=== PATIENT | female | born 1960 | race Caucasian/White ===

== ENCOUNTER 2017-08-30 10:42 | Inpatient (IN) | payer MEDICARE, MEDICAID ==
--- NOTE | 2017-08-23 16:45 | HP ---
HISTORY AND PHYSICAL: DATE OF ADMISSION/SURGERY: 08/30/17 DATE OF OFFICE VISIT: 08/22/17 SURGEON: Lisha Leblanc MD * (DICTATED BY HERBERT JOHNSON) PROCEDURE: Left total knee arthroplasty. CHIEF COMPLAINT: Left knee pain. HISTORY OF PRESENT ILLNESS: Ms. Hernandez is a 56-year-old female with severe left knee pain secondary to end-stage osteoarthritis. She has failed conservative management and has elected to proceed with a left total knee arthroplasty, which is scheduled for 08/30/[address] Leblanc. PAST MEDICAL HISTORY: Stage 3 kidney disease, exercise-induced asthma, diabetes , hypertension, sleep apnea, migraines, depression, hyperlipidemia, insomnia, GERD, and vitamin D deficiency. PAST SURGICAL HISTORY: Left knee arthroscopy, wisdom teeth extraction, and tonsillectomy. CURRENT MEDICATIONS: 1. Diclofenac sodium 1.5%. 2. Tramadol 50 mg. 3. Tums. 4. Neurontin 100 mg twice daily. 5. Aspirin 81 mg daily. 6. Lansoprazole 30 mg. 7. Colace 100 mg twice daily as needed. 8. Sumatriptan succinate 100 mg 1 tab twice a day. 9. Xyzal 5 mg every day. 10. Hydroxyzine 25 mg 1 tablet 3 times a day. 11. Simvastatin 40 mg q.h.s. 12. Oxybutynin 5 mg every day. 13. Ibuprofen as needed. 14. Nasonex as needed. 15. Restoril. 16. Citalopram 10 mg daily. 17. Gabapentin 300 mg 3 times a day. 18. Meloxicam 7.5 mg daily. 19. Lisinopril 20 mg daily. 20. Lexapro. 21. Rexulti. 22. Symbicort. 23. ProAir inhaler. ALLERGIES: To , DUST MITES, MOLD, CAT DANDER, DOG DANDER, and MILK- RELATED COMPOUNDS. FAMILY HISTORY: Lupus, kidney disease, hypertension, and psychiatric disorders. SOCIAL HISTORY: She is a 56-year-old female. She lives alone. She does not smoke, use drugs, or alcohol. REVIEW OF SYSTEMS: A complete 14-point review of systems was reviewed with the patient, it was positive for asthma, stage 3 kidney disease, and diabetes. She denies history of DVT, PE, hepatitis C, or HIV. PHYSICAL EXAMINATION GENERAL: She is well developed, well nourished, in no acute distress. VITAL SIGNS: She stands 5 feet tall, weighs 190 pounds. Her blood pressure is 120/86, her heart rate is 70. HEENT: Normocephalic, atraumatic. NECK: Supple. No palpable lymph nodes. PULMONARY: Lungs are clear to auscultation bilaterally. CARDIO: Regular rate and rhythm. Strong S1, S2. ABDOMEN: Soft, nontender, and nondistended. MUSCULOSKELETAL: Left lower extremity, the skin is intact. There are no open wounds or abrasions. She has some tenderness over the medial and lateral joint line. No varus or valgus instability. 10 to 125 degrees of flexion. 2+ dorsalis pedis pulses. Her lower extremity muscle group strengths are intact at 5/5 and she has intact sensation. NEUROLOGICAL: She is alert and oriented x3. Cranial nerves II through XII are intact. ASSESSMENT AND PLAN: Ms. Hernandez is a 56-year-old female with end-stage osteoarthritis of left knee. She has elected to proceed with a left total knee arthroplasty, which is scheduled for 08/30/[address] Leblanc discussed the risks and benefits of the surgery at today's visit and all of her questions were answered. She will follow with Dr. Leblanc 2 weeks after the surgery. HERBERT JOHNSON [id number]/CPS #: [id number] MTDD
[~2017-08-30 10:42] MED LIST: Buffered Lidocaine 0.9% SYRIN* 5 ML/SYR SYRINGE INTRADERM ONE; Famotidine IV* 10 MG/ML 2 ML (20 mg) IV ONE
[2017-08-30] MEDS ORDERED: Famotidine IV* 10 MG/ML 2 ML (20 mg) ONE (11:10)
[2017-08-30] MEDS ORDERED: ceFAZolin 2 GM PREMIX (*) 2 GM/50 ML BAG IVPB ONE (11:10)
[2017-08-30] MEDS ORDERED: Midazolam* 1 MG/ML 10 ML VIAL (10 MG) ONE (12:10)
[2017-08-30] MEDS ORDERED: KETAMINE HCL* 50 MG/ML 10 ML VIAL ONE (12:10)
[2017-08-30] MEDS ORDERED: Morphine PF AMP (0.5MG/ML)* 5 MG/10 ML AMP ONE (12:10)
[2017-08-30] MEDS ORDERED: fentaNYL* 50 MCG/ML 2 ML VIAL (100 MCG VIAL) ONE (12:10)
[2017-08-30] MEDS ORDERED: Naloxone* 0.4 MG/ML 1 ML VIAL IV PRN ×2 (15:48→15:53)
[2017-08-30] MEDS ORDERED: diPHENhydraMINE IV* 50 MG/ML 1 ml VIAL (BENADRYL) IV PRN (15:48)
[2017-08-30] MEDS ORDERED: DiMENhydriNATE IV* 50 MG/ML VIAL IV PUSH PRN (15:48)
[2017-08-30] MEDS ORDERED: PROCHLORPERAZINE INJ 5 MG/ML 2 ML VIAL IV PRN (15:48)
[2017-08-30] MEDS ORDERED: Ondansetron INJ* 2 MG/ML VIAL IV PRN (15:48)
[2017-08-30] MEDS ORDERED: Scopolamine PATCH Remove* 1 NOTE MISC PATCH OFF PRN (15:48)
[2017-08-30] MEDS ORDERED: Nalbuphine* 20 MG/ML 1 ML VIAL IV PRN (15:48)
[2017-08-30] MEDS ORDERED: Naloxone* 2 MG in NS 0.9% 250 ML* 250 ML IV PRN (15:48)
[2017-08-30] MEDS ORDERED: Phenylephrine INJ* 10 MG/ML 1 ML VIAL (10 MG) ONE (17:29)
[2017-08-30] MEDS ORDERED: Scopolamine 1.5 mg* PATCH ONE (17:29)
[2017-08-30] MEDS ORDERED: Bupivacaine 0.25% SDV* 30 ML ONE (17:29)
[2017-08-30] MEDS ORDERED: Lidocaine 2% PF * 5 ML VIAL ONE (17:29)
[2017-08-30] MEDS ORDERED: Ondansetron INJ* 2 MG/ML VIAL ONE (17:29)
[2017-08-30] MEDS ORDERED: Dexamethasone IV* 4 MG/ML 1 ML (4 MG) ONE (17:29)
[2017-08-30] MEDS ORDERED: Propofol* 10 MG/ML 20 ML BTL IV PUSH ONE (17:29)
[2017-08-30] MEDS ORDERED: Bupivacaine 0.5% SDV PF* 10-30ML VIAL ONE (17:29)
[2017-08-30] MEDS ORDERED: Polyethylene Glycol 3350* 17 GM PACKET PO PRN (17:36)
[2017-08-30] MEDS ORDERED: Magnesium Hydroxide LIQ* 30 ML UDC PO PRN (17:36)
[2017-08-30] MEDS ORDERED: Acetaminophen TAB* 325 MG PO PRN (17:36)
[2017-08-30] MEDS ORDERED: Bisacodyl SUPP* 10 MG SUPP PR PRN (17:36)
[2017-08-30] MEDS ORDERED: Atorvastatin* 20 MG TAB PO SCH (18:00)
--- NOTE | 2017-08-30 18:26 | RAD ---
INDICATION: Left knee arthroplasty COMPARISON: July 25, 2017 TECHNIQUE: Portable AP and crosstable lateral views were obtained. FINDINGS: There is left knee arthroplasty. The prosthetic components appear well seated. There is a surgical drain in place. There is a cooling jacket. IMPRESSION: POSTOPERATIVE LEFT TOTAL KNEE
[2017-08-30] MEDS ORDERED: Dextrose 50% Syringe 50 ML* 25 GM/50 ML SYRINGE IV PUSH PRN (20:03)
[2017-08-30] MEDS ORDERED: NF: Azelastine 0.15% NASAL(NF) 30 ML BTL BOTH NARES SCH (21:00)
[2017-08-30] MEDS ORDERED: Warfarin TAB(*) 6 MG PO ONE (21:30)
[2017-08-30] MEDS: Insulin LISPRO* 1 UNITS UNIT SUBCUT SCH (21:41)
[2017-08-30] MEDS: Mometasone/Formoter 200/5 MDI INH SCH (21:44)
[2017-08-30] MEDS: traZODone TAB* 50 MG TAB PO SCH (22:01)
[2017-08-30] MEDS: Docusate CAP* 100 MG PO SCH (22:01)
[2017-08-30] MEDS: Atorvastatin* 20 MG TAB PO SCH (22:01)
[2017-08-30] MEDS: CMCS: Brexpiprazole (NF) 0.5 MG TAB PO SCH (22:02)
[2017-08-30] MEDS: ceFAZolin 1 GM VIAL(*) 1 GM in NS 0.9% 50 ML* 50 ML IVPB SCH (22:04)
[2017-08-30] MEDS: Magnesium Hydroxide LIQ* 30 ML UDC PO SCH (22:07)
[2017-08-30] MEDS: Nalbuphine* 20 MG/ML 1 ML VIAL IV PRN (22:09)
[2017-08-30] MEDS: AZELASTINE 0.1% BOTH NARES SCH (22:49)
[2017-08-31] MEDS: oxyCODONE/Acetamin 5/325 MG* TAB PO PRN ×4 (02:01→20:54)
[2017-08-31] MEDS: Nalbuphine* 20 MG/ML 1 ML VIAL IV PRN (04:47)
--- NOTE | 2017-08-31 05:52 | CONS ---
CC: Dr. Leblanc; Dr. Ortega * CONSULTATION REPORT: DATE OF CONSULT: 08/30/17 REQUESTING PHYSICIAN: The patient's consultation was requested by Dr. Leblanc from Orthopedic Surgery in regards to the patient's medical management of postoperative state of the patient's diabetes, hypertension, and sleep apnea. CHIEF COMPLAINT: "I cannot feel my legs". HISTORY OF PRESENT ILLNESS: Reddy Hernandez is a 56-year-old female with history of obesity, diabetes that is diet controlled, obstructive sleep apnea, hypertension, and depression who is status post elective left knee replacement by Dr. Leblanc. The patient had epidural anesthesia and currently although she is able to move her legs, she states that she still cannot feel them. She is seen for medical consultation for postoperative management of her chronic medical conditions. PAST MEDICAL HISTORY: 1. History of exercise-induced asthma. 2. Diabetes type 2, diet controlled. The patient had been off metformin for 2 months. 3. Obstructive sleep apnea, on CPAP and 12 cm of water. 4. History of migraines. 5. History of major depression. 6. Hyperlipidemia. 7. Insomnia. 8. Gastroesophageal reflux disease. 9. History of vitamin D deficiency. 10. Osteoarthritis. MEDICATIONS: Include: 1. Diclofenac sodium 1.5%. 2. Tramadol on a p.r.n. basis. 3. Tums on a p.r.n. basis. 4. Neurontin 300 mg at bedtime. 5. Atarax 25 mg 3 times a day. 6. Trazodone 50 mg at bedtime. 7. Restoril 15 mg at bedtime. 8. Imitrex on a p.r.n. basis, 100 mg for migraines. 9. Zocor 40 mg daily. 10. Protonix 40 mg daily. 11. Oxybutynin 5 mg daily. 12. Neurontin in addition to 300 mg at night the patient takes 200 mg b.i.d. 13. Mobic 15 mg daily. 14. Lisinopril 20 mg daily. 15. Levocetirizine 5 mg daily. 16. Flonase nasal spray one spray both nostrils b.i.d. 17. Lexapro 30 mg daily. 18. Colace 100 mg at bedtime. 19. Calcium one tablet daily. 20. Symbicort 160/4.5 two puffs b.i.d. 21. Rexulti 1 mg by 2 p.m. 22. Azelastine one spray both nostrils b.i.d. 23. Aspirin 81 mg daily. 24. Artificial tears one drop both eyes q.a.m. 25. Albuterol inhaler on a p.r.n. basis. ALLERGIES: Include LACTOSE and MEPENZOLATE. FAMILY HISTORY: Positive for lupus and chronic kidney disease as well as psychiatric disorders. SOCIAL HISTORY: She denies any tobacco, alcohol or drug use. She lives alone. She has a daughter living nearby and boyfriend. She noted her boyfriend as her surrogate. REVIEW OF SYSTEMS: Please see history of present illness. All the remaining 12 systems were reviewed with the patient and were otherwise negative. PHYSICAL EXAM: Blood pressure of 113/69, heart rate of 68 and regular, respiratory rate 17, oxygen saturation 97% on 1 L of oxygen nasal cannula, and temperature of 97.3. General: The patient is a very pleasant 56-year-old female who is in no acute distress. Alert, awake, and oriented x3. HEENT: Head: Atraumatic, normocephalic. Eyes: Pupils are equal, round, and reactive to light and accommodation. Oropharynx clear. Mucosa moist. Neck: Supple. No JVD, no bruits bilaterally. Cardiovascular: Regular rate and rhythm. No murmur. Respiratory: Clear to auscultation bilaterally. Abdomen: Soft and nontender. Bowel sounds present in all 4 quadrants. Extremities: There is no edema. Pulses are +2 bilaterally. There is no clubbing or cyanosis. The patient's left knee is in cryo unit as postoperative dressings were not removed. On evaluation of the skin, no ecchymotic areas or rashes noted. Once again, the postoperative incision was not evaluated. Neuro Evaluation: Grossly intact apart from loss of sensation from the waist down from the epidural anesthesia that is slowly wearing off. The patient is able to move bilateral lower extremities, although she is not able to fully follow commands due to her sensory deficit. Speech is clear. Cranial nerves II through XII grossly intact. Motor strength is 5/5 bilaterally in all of the extremities. ASSESSMENT AND PLAN: 1. In regards to the patient's left knee replacement status, that is per Dr. Leblanc's service. The patient was already placed on Coumadin and Lovenox. The patient would like to go to rehab after her surgery. 2. In regards to the patient's diabetes type 2, that is diet controlled. We will continue a diabetic diet as well as insulin sliding scale. 3. For her obstructive sleep apnea, the patient has her own CPAP that is going to be continued. 4. For her hypertension, the patient is being continued on lisinopril as at home. 5. For her problems with depression, her outpatient medications are going to be continued. 6. For gastroesophageal reflux disease, Protonix is going to be substituted with omeprazole inpatient. 7. For DVT prophylaxis, the patient is on Lovenox and Coumadin as per primary service. Thank you very much for allowing me to see your patient in consultation. We will see the patient tomorrow. [id number]/[facility] #: [id number] OLLIE
[2017-08-31] MEDS: ceFAZolin 1 GM VIAL(*) 1 GM in NS 0.9% 50 ML* 50 ML IVPB SCH ×2 (05:59→15:09)
[2017-08-31] MEDS: Omeprazole CAP* 20 MG PO SCH (06:01)
[2017-08-31 06:49] LABS: Hematocrit 30 % (35-47); Hemoglobin 9.8 g/dl (12.0-16.0); Mean Platelet Volume 8 um3 (7.4-10.4); Platelet Count 246 10^3/ul (150-450)
[2017-08-31 06:54] LABS: INR 1.1 (0.77-1.02)
[2017-08-31 07:03] LABS: EGFR Non-African American 58.9 (>60)
[2017-08-31] MEDS ORDERED: Ondansetron TAB* 4 MG PO PRN (07:10)
[2017-08-31] MEDS ORDERED: Ondansetron INJ* 2 MG/ML VIAL IV PRN (07:10)
[2017-08-31] MEDS ORDERED: diPHENhydraMINE IV* 50 MG/ML 1 ml VIAL (BENADRYL) IV PRN (07:10)
[2017-08-31] MEDS: Ketorolac INJ* 30 MG/ML 1 ML VIAL IV PRN (07:33)
[2017-08-31] MEDS: Cyclobenzaprine TAB* 10 MG PO PRN ×3 (07:35→23:30)
[2017-08-31] MEDS: CMCS: Escitalopram (NF) 10 MG TAB PO SCH (08:24)
[2017-08-31] MEDS: hydrOXYzine HCL TAB* 25 MG PO SCH ×3 (08:24→20:55)
[2017-08-31] MEDS: Cetirizine* 10 MG TAB PO SCH (08:24)
[2017-08-31] MEDS: Docusate CAP* 100 MG PO SCH ×2 (08:24→20:55)
[2017-08-31] MEDS: AZELASTINE 0.1% BOTH NARES SCH ×2 (08:24→20:51)
[2017-08-31] MEDS: oxyCODONE TAB* 5 MG TAB PO PRN ×3 (08:24→23:29)
[2017-08-31] MEDS: Artificial Tears* 15 ML BTL BOTH EYES SCH (08:25)
[2017-08-31] MEDS: Mometasone/Formoter 200/5 MDI INH SCH ×2 (08:25→20:52)
[2017-08-31] MEDS: Magnesium Hydroxide LIQ* 30 ML UDC PO SCH ×2 (08:30→20:54)
[2017-08-31] MEDS: Insulin LISPRO* 1 UNITS UNIT SUBCUT SCH ×4 (08:43→20:55)
[2017-08-31] MEDS ORDERED: OXYBUTYNIN 5 MG PO SCH (09:00)
[2017-08-31] MEDS ORDERED: Lisinopril TAB* 10 MG PO SCH (09:00)
[2017-08-31] MEDS: Morphine INJ* 2 MG/ML 1 ML SYRINGE (TWO MG - NEW SYRINGE VERSION) IV PRN ×3 (09:45→17:20)
--- NOTE | 2017-08-31 11:29 | PN ---
Progress Note - Progress Note Date of Service: 08/31/17 Note: Anesthesia durmorph followup, pt doing well pain strong, -NV, - DUNNE, neuro ok, alert, VSS. s/p TKR continue oral meds.
--- NOTE | 2017-08-31 12:02 | PN ---
Subjective Date of Service: 08/31/17 Interval History: Pt feels better after she got morphine for post op pain this AM. Hypotensive, but asymptomatic Objective Active Medications: Acetaminophen (Tylenol Tab*) 650 mg PO Q4H PRN PRN Reason: PAIN OR TEMPERATURE Albuterol (Proair Respiclick) 2 puff INH BID [facility] Atorvastatin Calcium (Lipitor*) 20 mg PO BEDTIME [facility] Last Admin: 08/30/17 22:01 Dose: 20 mg Bisacodyl (Dulcolax Supp*) 10 mg NE DAILY PRN PRN Reason: constipation Brexpiprazole (Rexulti 0.5 Mg Tab (Nf)) 1 mg PO QPM [facility] Last Admin: 08/30/17 22:02 Dose: 1 mg Cetirizine HCl (Zyrtec*) 10 mg PO QAM [facility] Last Admin: 08/31/17 08:24 Dose: 10 mg Cyclobenzaprine HCl (Flexeril Tab*) 10 mg PO TID PRN PRN Reason: SPASMS Last Admin: 08/31/17 07:35 Dose: 10 mg Dextrose (D50w Syringe 50 Ml*) 12.5 gm IV PUSH .FOR FS < 60 - SS PRN PRN Reason: FS < 60 Diphenhydramine HCl (Benadryl Iv*) 12.5 mg IV Q6H PRN PRN Reason: PRURITIS Docusate Sodium (Colace Cap*) 100 mg PO BID [facility] Last Admin: 08/31/17 08:24 Dose: 100 mg Enoxaparin Sodium (Lovenox(*)) 30 mg SUBCUT Q24H [facility] Escitalopram Oxalate (Lexapro (Nf)) 30 mg PO QAM [facility] Last Admin: 08/31/17 08:24 Dose: 30 mg Gabapentin (Neurontin Cap(*)) 300 mg PO BEDTIME [facility] Hydroxyzine HCl (Atarax Tab*) 25 mg PO TID [facility] Last Admin: 08/31/17 08:24 Dose: 25 mg Cefazolin Sodium 1 gm/ Sodium (Chloride) 50 mls @ 200 mls/hr IVPB Q8H [facility] Stop: 08/31/17 14:14 Last Admin: 08/31/17 05:59 Dose: 200 mls/hr Lactated Ringer's (Lactated Ringers 1000 Ml Bag*) 1,000 mls @ 100 mls/hr IV PER RATE [facility] Last Admin: 08/30/17 20:52 Dose: 100 mls/hr Insulin Human Lispro (Humalog*) 0 units SUBCUT ACHS [facility] PRN Reason: Protocol Last Admin: 08/31/17 08:43 Dose: 2 units Ketorolac Tromethamine (Toradol Inj*) 30 mg IV Q6H PRN PRN Reason: PAIN Last Admin: 08/31/17 07:33 Dose: 30 mg Magnesium Hydroxide (Milk Of Magnesia Liq*) 30 ml PO BID [facility] Last Admin: 08/31/17 08:30 Dose: 30 ml Magnesium Hydroxide (Milk Of Magnesia Liq*) 30 ml PO Q6H PRN PRN Reason: constipation Mometasone Furoate/Formoterol Fumar (Dulera 200/5 Mdi*) 2 puff INH BID [facility] PRN Reason: Protocol Last Admin: 08/31/17 08:25 Dose: 2 puff Morphine Sulfate (Morphine Inj (Syringe)*) 2 mg IV Q2H PRN PRN Reason: PAIN Last Admin: 08/31/17 09:45 Dose: 2 mg Non-Formulary Medication (Oxybutinin Chloride) 5 mg PO QAM [facility] Pto:Nf Med ( Azelastine Nasal Soln 0.1%) 1 dose BOTH NARES BID [facility] Last Admin: 08/31/17 08:24 Dose: 1 dose Omeprazole (Prilosec Cap*) 20 mg PO DAILY@0600 [facility] Last Admin: 08/31/17 06:01 Dose: 20 mg Ondansetron HCl (Zofran Inj*) 4 mg IV Q6H PRN PRN Reason: nausea Ondansetron HCl (Zofran Tab*) 4 mg PO Q6H PRN PRN Reason: NAUSEA Oxycodone HCl (Roxycodone Tab*) 10 mg PO Q4H PRN PRN Reason: SEVERE PAIN Last Admin: 08/31/17 08:24 Dose: 10 mg Oxycodone/Acetaminophen (Percocet 5/325 Tab*) 2 tab PO Q4H PRN PRN Reason: Moderate Pain Last Admin: 08/31/17 06:01 Dose: 2 tab Oxycodone/Acetaminophen (Percocet 5/325 Tab*) 2 tab PO Q4H PRN PRN Reason: PAIN Oxycodone/Acetaminophen (Percocet 5/325 Tab*) 1 tab PO Q4H PRN PRN Reason: PAIN Pharmacy Profile Note (Scopolamine Patch Remove*) 1 note PATCH OFF .AFTER 72 HOURS PRN PRN Reason: nausea Stop: 09/02/17 15:50 Pharmacy Profile Note (Coumadin Daily Reminder*) 1 note FOLLOW UP 1700 [facility] Polyethylene Glycol/Electrolytes (Miralax*) 17 gm PO DAILY PRN PRN Reason: Constipation Polyvinyl Alcohol (Polyvinyl Alcohol 1.4% Opth*) 1 drop BOTH EYES QAM [facility] Last Admin: 08/31/17 08:25 Dose: Not Given Temazepam (Restoril Cap*) 15 mg PO BEDTIME ANA Trazodone HCl (Desyrel Tab*) 50 mg PO BEDTIME [facility] Last Admin: 08/30/17 22:01 Dose: 50 mg Warfarin Sodium (Coumadin Tab(*)) 8 mg PO ONCE@1700 ONE PRN Reason: Protocol Stop: 08/31/17 17:01 Vital Signs - 8 hr 08/31/17 08/31/17 08/31/17 04:05 04:47 06:01 Temperature Pulse Rate Respiratory 16 16 16 Rate Blood Pressure (mmHg) O2 Sat by Pulse Oximetry 08/31/17 08/31/17 08/31/17 06:12 07:35 07:51 Temperature 98.5 F Pulse Rate 80 Respiratory 16 18 16 Rate Blood Pressure 88/55 (mmHg) O2 Sat by Pulse 92 Oximetry 08/31/17 08/31/17 08/31/17 08:00 08:19 08:24 Temperature Pulse Rate Respiratory 18 18 18 Rate Blood Pressure (mmHg) O2 Sat by Pulse 92 Oximetry 08/31/17 08/31/17 08/31/17 09:42 09:45 10:31 Temperature Pulse Rate Respiratory 18 18 18 Rate Blood Pressure (mmHg) O2 Sat by Pulse Oximetry 08/31/17 08/31/17 10:48 11:53 Temperature 98.8 F Pulse Rate 84 Respiratory 18 16 Rate Blood Pressure 82/54 (mmHg) O2 Sat by Pulse 89 Oximetry Oxygen Devices in Use Now: None Appearance: 56 yo F in nAD, aAOx3 Eyes: No Scleral Icterus, PERRLA Ears/Nose/Mouth/Throat: NL Teeth, Lips, Gums, Mucous Membranes Moist Neck: NL Appearance and Movements; NL JVP, Trachea Midline Respiratory: Symmetrical Chest Expansion and Respiratory Effort, Clear to Auscultation Cardiovascular: NL Sounds; No Murmurs; No JVD, RRR Abdominal: NL Sounds; No Tenderness; No Distention Lymphatic: No Cervical Adenopathy Extremities: - - trace left leg edema, L leg in ADRIA badage, post op dressings not removed Neurological: Alert and Oriented x 3, NL Muscle Strength and Tone Result Diagrams: 08/31/17 06:41 08/31/17 06:41 Assess/Plan/Problems-Billing Assessment: 56 yo F with h/o NADYA, DM diet controlled, HTN, depression, s/p L knee replacement - Patient Problems (1) Status post left knee replacement Comment: as per Dr. Leblanc (2) Hypotension Comment: hold ACEI, tx with IVF bolus (3) DM2 (diabetes mellitus, type 2) Comment: diet controlled at home Cont ISS (4) NADYA (obstructive sleep apnea) Comment: cont CPAP from home (5) Postoperative anemia due to acute blood loss Comment: Hb down to 9.8, cont to monitor (6) DVT prophylaxis Comment: Loveox and Coumadin as per ortho Status and Disposition: inpatient, medicine consult
[2017-08-31] MEDS: Enoxaparin(*) 30 MG/0.3 ML SYR SUBCUT SCH (12:29)
[2017-08-31] MEDS ORDERED: Albuterol HFA INHALER* 8 gm MDI INH PRN (14:00)
--- NOTE | 2017-08-31 14:30 | PN ---
Progress Note - Progress Note Date of Service: 08/31/17 SOAP: Subjective: 56 y/o female s/p L total knee arthroplasty. VSS afebrile overnight, feeling well, pain managed with morphine. Objective: General- well appearing, NAD ao sitting in chair comfortably MSK- surgical dressing intact, no drainage noted, + DF/PF b/l, neg homans sign, SITLT b/l. Vital Signs Temp 98.8 F 08/31/17 11:53 Pulse 84 08/31/17 11:53 Resp 18 08/31/17 13:51 BP 82/54 08/31/17 11:53 Pulse Ox 89 08/31/17 11:53 Intake & Output 08/30/17 08/31/17 08/31/17 18:59 06:59 18:59 Intake Total 2700 715 1520 Output Total 550 1675 200 Balance 2150 -960 1320 Weight 85.729 kg Intake: IV Fluids 2700 55 ABX - CEFAZOLIN 55 lr 2700 IVPB 1070 ABX - CEFAZOLIN 55 LR 1015 Oral 660 450 Output: Urine 200 Arguello 550 1675 Assessment: 56 y/o female s/p L total knee arthroplasty 08/30 Plan: - Lovenox, coumadin- 8mg tonight - D/C to home over weekend - Continue PT - Pain controlled Active Medications Generic Name Dose Route Start Last Admin Trade Name Freq PRN Reason Stop Dose Admin Acetaminophen 650 mg 08/30/17 17:36 Tylenol Tab* PO Q4H PRN PAIN OR TEMPERATURE Albuterol 2 puff 08/31/17 14:00 Ventolin Hfa Inhaler* INH Q4H PRN SOB/WHEEZING Atorvastatin Calcium 20 mg 08/30/17 22:00 08/30/17 22:01 Lipitor* PO 20 mg BEDTIME ANA Administration Bisacodyl 10 mg 08/30/17 17:36 Dulcolax Supp* [place] DAILY PRN constipation Brexpiprazole 1 mg 08/30/17 18:00 08/30/17 22:02 Rexulti 0.5 Mg Tab (Nf) PO 1 mg QPM ANA Administration Cetirizine HCl 10 mg 08/31/17 09:00 08/31/17 08:24 Zyrtec* PO 10 mg QAM ANA Administration Cyclobenzaprine HCl 10 mg 08/31/17 07:10 08/31/17 07:35 Flexeril Tab* PO 10 mg TID PRN Administration SPASMS Dextrose 12.5 gm 08/30/17 20:03 D50w Syringe 50 Ml* IV PUSH .FOR FS < 60 - SS PRN FS < 60 Diphenhydramine HCl 12.5 mg 08/31/17 07:10 08/31/17 15:09 Benadryl Iv* IV 12.5 mg Q6H PRN Administration PRURITIS Docusate Sodium 100 mg 08/30/17 21:00 08/31/17 08:24 Colace Cap* PO 100 mg BID ANA Administration Enoxaparin Sodium 30 mg 08/31/17 12:00 08/31/17 12:29 Lovenox(*) SUBCUT 30 mg Q24H ANA Administration Escitalopram Oxalate 30 mg 08/31/17 09:00 08/31/17 08:24 Lexapro (Nf) PO 30 mg QAM ANA Administration Gabapentin 300 mg 08/31/17 21:00 Neurontin Cap(*) PO BEDTIME ANA Hydroxyzine HCl 25 mg 08/31/17 09:00 08/31/17 15:09 Atarax Tab* PO 25 mg TID ANA Administration Lactated Ringer's 1,000 mls @ 100 mls/hr 08/30/17 18:00 08/30/17 20:52 Lactated Ringers 1000 Ml Bag* IV 100 mls/hr PER RATE ANA Administration Insulin Human Lispro 0 units 08/30/17 21:00 08/31/17 16:55 Humalog* SUBCUT Not Given ACHS [facility] Protocol Ketorolac Tromethamine 30 mg 08/30/17 15:48 08/31/17 07:33 Toradol Inj* IV 30 mg Q6H PRN Administration PAIN Magnesium Hydroxide 30 ml 08/30/17 21:00 08/31/17 08:30 Milk Of Magnesia Liq* PO 30 ml BID ANA Administration Magnesium Hydroxide 30 ml 08/30/17 17:36 Milk Of Magnesia Liq* PO Q6H PRN constipation Mometasone Furoate/Formoterol Fumar 2 puff 08/30/17 21:00 08/31/17 08:25 Dulera 200/5 Mdi* INH 2 puff BID ANA Administration Protocol Morphine Sulfate 2 mg 08/31/17 07:10 08/31/17 13:51 Morphine Inj (Syringe)* IV 2 mg Q2H PRN Administration PAIN Pto:Nf Med ( 1 dose 08/30/17 23:00 08/31/17 08:24 Azelastine Nasal BOTH NARES 1 dose Soln 0.1%) BID ANA Administration Omeprazole 20 mg 08/31/17 06:00 08/31/17 06:01 Prilosec Cap* PO 20 mg DAILY@0600 ANA Administration Ondansetron HCl 4 mg 08/31/17 07:10 Zofran Inj* IV Q6H PRN nausea Ondansetron HCl 4 mg 08/31/17 07:10 Zofran Tab* PO Q6H PRN NAUSEA Oxycodone HCl 10 mg 08/31/17 07:10 08/31/17 16:30 Roxycodone Tab* PO 10 mg Q4H PRN Administration SEVERE PAIN Oxycodone/Acetaminophen 2 tab 08/30/17 15:48 08/31/17 12:29 Percocet 5/325 Tab* PO 2 tab Q4H PRN Administration Moderate Pain Oxycodone/Acetaminophen 2 tab 08/31/17 07:10 Percocet 5/325 Tab* PO Q4H PRN PAIN Oxycodone/Acetaminophen 1 tab 08/31/17 07:10 Percocet 5/325 Tab* PO Q4H PRN PAIN Pharmacy Profile Note 1 note 08/30/17 15:48 Scopolamine Patch Remove* PATCH OFF 09/02/17 15:50 .AFTER 72 HOURS PRN nausea Pharmacy Profile Note 1 note 08/31/17 17:00 08/31/17 15:13 Coumadin Daily Reminder* FOLLOW UP 1 note 1700 ANA Administration Polyethylene Glycol/Electrolytes 17 gm 08/30/17 17:36 Miralax* PO DAILY PRN Constipation Polyvinyl Alcohol 1 drop 08/31/17 09:00 08/31/17 08:25 Polyvinyl Alcohol 1.4% Opth* BOTH EYES Not Given QAM ANA Temazepam 15 mg 08/31/17 21:00 Restoril Cap* PO BEDTIME ANA Trazodone HCl 50 mg 08/30/17 21:00 08/30/17 22:01 Desyrel Tab* PO 50 mg BEDTIME ANA Administration
[2017-08-31] MEDS ORDERED: Warfarin TAB(*) 4 MG PO ONE (17:00)
[2017-08-31] MEDS: Atorvastatin* 20 MG TAB PO SCH (20:54)
[2017-08-31] MEDS: Gabapentin CAP(*) 300 MG PO SCH (20:55)
[2017-08-31] MEDS: Temazepam CAP* 15 MG PO SCH (20:55)
[2017-08-31] MEDS: traZODone TAB* 50 MG TAB PO SCH (20:55)
[2017-08-31] MEDS: CMCS: Brexpiprazole (NF) 0.5 MG TAB PO SCH (21:09)
[2017-09-01] MEDS: oxyCODONE/Acetamin 5/325 MG* TAB PO PRN ×3 (00:49→17:53)
[2017-09-01] MEDS: oxyCODONE TAB* 5 MG TAB PO PRN (03:35)
--- NOTE | 2017-09-01 03:35 | OP ---
DATE OF OPERATION: 08/30/17 - ROOM #349 DATE OF : 62 ATTENDING SURGEON: Lisha Leblanc MD LACE TEARING SUPERVISOR: HERBERT Toro. Ms. Munguia did help throughout the procedure with preparation of the leg, wound retraction, manipulation of the knee, and wound closure. ANESTHESIOLOGIST: Dr. Appiah. ANESTHESIA: Spinal. PRE-OP DIAGNOSIS: Severe end-stage degenerative osteoarthritis of the left knee joint. POST-OP DIAGNOSIS: OPERATIVE PROCEDURE: Left total knee arthroplasty. TOURNIQUET TIME: 52 minutes. COMPLICATIONS: None. ESTIMATED BLOOD LOSS: 300 cc. SPECIMEN: Bone and cartilage from the left knee joint sent to Pathology. HARDWARE USED: This is cemented Cardona [employer] Nephew total knee arthroplasty hardware with 2 packages of Simplex bone cement. For the femur, a Legion left size 4 narrow posterior stabilized femoral component; for the tibia, a Nika II size 3 left tibial baseplate; for the insert, a 9-mm posterior stabilized articular insert, and for the patella, a 29-mm 3-peg all-poly patella. BRIEF HISTORY/INDICATIONS: Ms. Hernandez is a 56-year-old female with years of increasingly severe left knee pain. Radiographs showed advanced arthritis of the left knee joint. She failed conservative treatment with anti-inflammatories , pain medications, intra-articular injections, physical therapy and arthroscopy. Due to continued pain and decreased quality of life, she elected to undergo left total knee arthroplasty. Informed consent was obtained from the patient. She understood the risks of surgery included but were not limited to bleeding, infection, damage to nearby structures, continued pain, need for further surgery, intraoperative fracture, nerve palsy, hardware failure or loosening, knee stiffness, loss of motion, stroke, heart attack, blood clot, and . She wished to proceed. INTRAOPERATIVE FINDINGS: Intraoperatively, the patient was noted to have severe loss of cartilage in the medial, lateral and patellofemoral compartment. She had some osteopenia noted as well. DESCRIPTION OF PROCEDURE: Ms. Hernandez was identified in the preanesthesia unit. Her left lower extremity was marked as the correct operative side. Informed consent was signed and placed in the chart. The patient was taken to the operating room and placed under spinal anesthesia. Arguello catheter was placed. Tourniquet was placed on the left thigh. Left lower extremity was prepped and draped in the usual sterile fashion. Preop time-out was made to correctly identify the patient's side and site. Appropriate perioperative antibiotics were given within 1 hour of incision. Tourniquet was inflated and total tourniquet time for this procedure was 52 minutes. A 12-cm midline incision was made with a 10 blade and carried down to the extensor mechanism. A new 10 blade was used to make a standard medial parapatellar arthrotomy. The patella was subluxed laterally. Electrocautery was used to subperiosteally elevate soft tissue along the superomedial tibia to the midsagittal plane. The knee was flexed up. The anterior horn of the lateral meniscus and ACL were sharply released. A drill was used to enter the distal femur. Intramedullary distal femoral cutting guide was pinned in appropriate position. An oscillating saw was used to make the distal femoral cut. The external rotation guide was pinned on the distal femur and the distal femur was sized to a size 4. Size 4 multi-cutting jig was pinned on the distal femur. The oscillating saw was used to make the appropriate 4 chamfer cuts. Next, the PCL was completely released. Extramedullary tibial cutting guide was pinned on the proximal tibia. The oscillating saw was used to make the proximal tibial cut perpendicular to the mechanical axis of the tibia. The tibial bone was carefully removed. The knee was brought out into extension and the spacer block had excellent fit. The medial and lateral ligaments were well balanced. The flexion and extension gaps were well balanced. The knee was flexed up. Lamina agency manager was placed both medially and laterally. Any remaining meniscus was carefully removed using electrocautery. Posterior osteophytes were removed with a curved osteotome. The tibial tray and drop linus were placed to once again confirm a satisfactory tibial cut. A left size 4 left narrow femur trial was impacted on to the distal femur and had good fit. The box for the posterior stabilized implant was prepared using a reamer and box cut osteotome. A size 3 tibial tray and a 9-mm insert trial was placed and the knee was taken through a range of motion. The knee had full extension to 130 degrees of flexion with satisfactory patellofemoral tracking. The patella was everted. 9 mm of patellar bone and cartilage were carefully removed using an oscillating saw. The patella was sized to a size 29. The 3- peg holes were drilled through the size 29 guide. Trial 29 patella was placed and the knee was taken through a range of motion. There was satisfactory patellofemoral tracking. All trials were carefully removed. The tibia was subluxed anteriorly and sized to a size 3. Proximal tibia was prepared using a size 3 keel punch. All bony cut surfaces were copiously irrigated with sterile saline and dried. Final implants were cemented into place starting with the tibia followed by the femur and last the patella. 9 mm insert trial was placed while the knee was brought out into full extension. The tourniquet was turned down. The knee was copiously irrigated with sterile saline. Electrocautery was used to obtain meticulous hemostasis. Once the cement had fully cured, the insert trial was removed. Any excess bone hardware. Final implant chosen was a 9-mm posterior stabilized articular insert size 3-4 with a 9 mm thickness. This was locked into position on the tibial tray. Stability of the insert was checked and rechecked and noted to be stable. The extensor mechanism was closed using interrupted #1 Vicryl. The rest of the incision was closed in a layered fashion using 0 and 2-0 Vicryl. The skin was closed using running 3-0 nylon. Sterile Xeroform, 4x4s, and Webril were used to cover the incision. Issac wrap and cold packs were placed over this. The patient's anesthesia was reversed without difficulty. She was taken to the PACU in stable condition. Intended weightbearing will be weightbearing as tolerated. Intended DVT prophylaxis will be Coumadin with a Lovenox bridge. [id number]/[facility] #: [id number] OLLIE
[2017-09-01] MEDS ORDERED: NS 0.9% 1000 ML* 2,600 ML IV ONE (04:25)
[2017-09-01 05:00] LABS: Hematocrit 28 % (35-47); Hemoglobin 9.2 g/dl (12.0-16.0); Mean Platelet Volume 8 um3 (7.4-10.4); Platelet Count 249 10^3/ul (150-450)
[2017-09-01] MEDS: Cyclobenzaprine TAB* 10 MG PO PRN (05:00)
[2017-09-01] MEDS: Omeprazole CAP* 20 MG PO SCH (05:01)
[2017-09-01 05:05] LABS: INR 1.52 (0.77-1.02)
[2017-09-01 05:26] LABS: Urine Appearance Clear; Urine Blood Negative (Negative); Urine Color Straw; Urine Ketones Negative (Negative); Urine Protein Negative (Negative); Urine Specific Gravity 1.005 (1.010-1.030); Urine Urobilinogen Negative (Negative)
[2017-09-01] MEDS: CMCS: Escitalopram (NF) 10 MG TAB PO SCH (07:49)
[2017-09-01] MEDS: Docusate CAP* 100 MG PO SCH ×2 (07:50→21:38)
[2017-09-01] MEDS: hydrOXYzine HCL TAB* 25 MG PO SCH ×3 (07:52→21:38)
[2017-09-01] MEDS: Cetirizine* 10 MG TAB PO SCH (07:52)
[2017-09-01] MEDS: Morphine INJ* 2 MG/ML 1 ML SYRINGE (TWO MG - NEW SYRINGE VERSION) IV PRN (07:55)
[2017-09-01] MEDS: Artificial Tears* 15 ML BTL BOTH EYES SCH (07:58)
[2017-09-01] MEDS: Magnesium Hydroxide LIQ* 30 ML UDC PO SCH ×2 (07:58→21:39)
[2017-09-01] MEDS: Mometasone/Formoter 200/5 MDI INH SCH ×2 (07:59→20:16)
[2017-09-01] MEDS: AZELASTINE 0.1% BOTH NARES SCH ×2 (08:00→22:56)
[2017-09-01] MEDS: Insulin LISPRO* 1 UNITS UNIT SUBCUT SCH ×4 (08:08→21:42)
[2017-09-01 09:03] LABS: ABS Basophils 0 10^3/ul (0-0.2); ABS Eosinophils 0 10^3/ul (0-0.6); ABS Lymphocytes 2.7 10^3/ul (1.0-4.8); ABS Monocytes 1.3 10^3/ul (0-0.8); ABS Neutrophils 10.2 10^3/ul (1.5-7.7); ABS Nucleated RBC 0 10^3/ul; Eosinophil % 0.2 % (0-6); Lymphocyte % 19.2 % (25-47); Mean Corpuscular HGB Conc 33 g/dl (31-36); Mean Corpuscular Hemoglobin 28 pg (27-31); Mean Corpuscular Volume 83 fL (80-97); Nucleated Red Blood Cells % 0; Red Blood Count 3.32 10^6/ul (4.0-5.4); Red Cell Distribution Width 16 % (10.5-15); White Blood Count 14.2 10^3/ul (3.5-10.8)
--- NOTE | 2017-09-01 09:50 | PN ---
Subjective Date of Service: 09/01/17 Interval History: Pt is very tired, had a bad night due to pain in left knee. Fever>101 noted Objective Active Medications: Acetaminophen (Tylenol Tab*) 650 mg PO Q4H PRN PRN Reason: PAIN OR TEMPERATURE Albuterol (Ventolin Hfa Inhaler*) 2 puff INH Q4H PRN PRN Reason: SOB/WHEEZING Atorvastatin Calcium (Lipitor*) 20 mg PO BEDTIME [facility] Last Admin: 08/31/17 20:54 Dose: 20 mg Bisacodyl (Dulcolax Supp*) 10 mg [place] DAILY PRN PRN Reason: constipation Brexpiprazole (Rexulti 0.5 Mg Tab (Nf)) 1 mg PO QPM [facility] Last Admin: 08/31/17 21:09 Dose: 1 mg Cetirizine HCl (Zyrtec*) 10 mg PO QAM [facility] Last Admin: 09/01/17 07:52 Dose: 10 mg Cyclobenzaprine HCl (Flexeril Tab*) 10 mg PO TID PRN PRN Reason: SPASMS Last Admin: 09/01/17 05:00 Dose: 10 mg Dextrose (D50w Syringe 50 Ml*) 12.5 gm IV PUSH .FOR FS < 60 - SS PRN PRN Reason: FS < 60 Diphenhydramine HCl (Benadryl Iv*) 12.5 mg IV Q6H PRN PRN Reason: PRURITIS Last Admin: 08/31/17 15:09 Dose: 12.5 mg Docusate Sodium (Colace Cap*) 100 mg PO BID [facility] Last Admin: 09/01/17 07:50 Dose: 100 mg Enoxaparin Sodium (Lovenox(*)) 30 mg SUBCUT Q24H [facility] Last Admin: 08/31/17 12:29 Dose: 30 mg Escitalopram Oxalate (Lexapro (Nf)) 30 mg PO QAM [facility] Last Admin: 09/01/17 07:49 Dose: 30 mg Gabapentin (Neurontin Cap(*)) 300 mg PO BEDTIME [facility] Last Admin: 08/31/17 20:55 Dose: 300 mg Hydroxyzine HCl (Atarax Tab*) 25 mg PO TID [facility] Last Admin: 09/01/17 07:52 Dose: 25 mg Lactated Ringer's (Lactated Ringers 1000 Ml Bag*) 1,000 mls @ 100 mls/hr IV PER RATE [facility] Last Admin: 09/01/17 08:05 Dose: 100 mls/hr Insulin Human Lispro (Humalog*) 0 units SUBCUT ACHS [facility] PRN Reason: Protocol Last Admin: 09/01/17 08:08 Dose: Not Given Ketorolac Tromethamine (Toradol Inj*) 30 mg IV Q6H PRN PRN Reason: PAIN Last Admin: 08/31/17 07:33 Dose: 30 mg Magnesium Hydroxide (Milk Of Magnesia Liq*) 30 ml PO BID [facility] Last Admin: 09/01/17 07:58 Dose: 30 ml Magnesium Hydroxide (Milk Of Magnesia Liq*) 30 ml PO Q6H PRN PRN Reason: constipation Mometasone Furoate/Formoterol Fumar (Dulera 200/5 Mdi*) 2 puff INH BID [facility] PRN Reason: Protocol Last Admin: 09/01/17 07:59 Dose: 2 puff Morphine Sulfate (Morphine Inj (Syringe)*) 2 mg IV Q2H PRN PRN Reason: PAIN Last Admin: 09/01/17 07:55 Dose: 2 mg Pto:Nf Med ( Azelastine Nasal Soln 0.1%) 1 dose BOTH NARES BID [facility] Last Admin: 09/01/17 08:00 Dose: 1 dose Omeprazole (Prilosec Cap*) 20 mg PO DAILY@0600 [facility] Last Admin: 09/01/17 05:01 Dose: 20 mg Ondansetron HCl (Zofran Inj*) 4 mg IV Q6H PRN PRN Reason: nausea Ondansetron HCl (Zofran Tab*) 4 mg PO Q6H PRN PRN Reason: NAUSEA Oxycodone HCl (Roxycodone Tab*) 10 mg PO Q4H PRN PRN Reason: SEVERE PAIN Last Admin: 09/01/17 03:35 Dose: 10 mg Oxycodone/Acetaminophen (Percocet 5/325 Tab*) 2 tab PO Q4H PRN PRN Reason: Moderate Pain Last Admin: 09/01/17 07:45 Dose: 2 tab Oxycodone/Acetaminophen (Percocet 5/325 Tab*) 2 tab PO Q4H PRN PRN Reason: PAIN Last Admin: 09/01/17 00:49 Dose: 2 tab Oxycodone/Acetaminophen (Percocet 5/325 Tab*) 1 tab PO Q4H PRN PRN Reason: PAIN Pharmacy Profile Note (Scopolamine Patch Remove*) 1 note PATCH OFF .AFTER 72 HOURS PRN PRN Reason: nausea Stop: 09/02/17 15:50 Pharmacy Profile Note (Coumadin Daily Reminder*) 1 note FOLLOW UP 1700 [facility] Last Admin: 08/31/17 15:13 Dose: 1 note Polyethylene Glycol/Electrolytes (Miralax*) 17 gm PO DAILY PRN PRN Reason: Constipation Polyvinyl Alcohol (Polyvinyl Alcohol 1.4% Opth*) 1 drop BOTH EYES QAM [facility] Last Admin: 09/01/17 07:58 Dose: 1 drop Temazepam (Restoril Cap*) 15 mg PO BEDTIME [facility] Last Admin: 08/31/17 20:55 Dose: 15 mg Trazodone HCl (Desyrel Tab*) 50 mg PO BEDTIME [facility] Last Admin: 08/31/17 20:55 Dose: 50 mg Warfarin Sodium (Coumadin Tab(*)) 8 mg PO ONCE@1700 ONE PRN Reason: Protocol Stop: 09/01/17 17:01 Vital Signs - 8 hr 09/01/17 09/01/17 09/01/17 02:03 02:52 03:35 Temperature 101.7 F Pulse Rate Respiratory 18 14 Rate Blood Pressure (mmHg) O2 Sat by Pulse Oximetry 09/01/17 09/01/17 09/01/17 03:46 05:00 05:17 Temperature 101.8 F Pulse Rate 105 Respiratory 14 18 18 Rate Blood Pressure 96/49 (mmHg) O2 Sat by Pulse 95 Oximetry 09/01/17 09/01/17 09/01/17 06:41 07:45 07:55 Temperature Pulse Rate Respiratory 16 16 16 Rate Blood Pressure (mmHg) O2 Sat by Pulse Oximetry Oxygen Devices in Use Now: None Appearance: 56 yo f in nAD, aAOx3 Eyes: No Scleral Icterus, PERRLA Ears/Nose/Mouth/Throat: NL Teeth, Lips, Gums, Mucous Membranes Moist Neck: NL Appearance and Movements; NL JVP, Trachea Midline Respiratory: Symmetrical Chest Expansion and Respiratory Effort, Clear to Auscultation Cardiovascular: NL Sounds; No Murmurs; No JVD, RRR Abdominal: NL Sounds; No Tenderness; No Distention, No Hepatosplenomegaly Lymphatic: No Cervical Adenopathy Extremities: - - trace b/l pedal edema Skin: No Nodules or Sclerosis, - - left knee in surgical dressings not uncovered Neurological: Alert and Oriented x 3, NL Muscle Strength and Tone Result Diagrams: 09/01/17 04:50 08/31/17 06:41 Assess/Plan/Problems-Billing Assessment: 56 yo F with h/o NADYA, DM diet controlled, HTN, depression, s/p L knee replacement - Patient Problems (1) Status post left knee replacement Comment: as per Dr. Leblanc (2) Hypotension Comment: hold ACEI, tx with IVF , SBP in 90 in pt s/p significant opioid tx for pain. check BMP (3) DM2 (diabetes mellitus, type 2) Comment: diet controlled at home Cont ISS (4) NADYA (obstructive sleep apnea) Comment: cont CPAP from home (5) Postoperative anemia due to acute blood loss Comment: Hb now stable, cont to monitor (6) Postoperative fever Comment: suspect atelectasis. Educated about incentive spirometry. CXR official read pending, [facility] (7) DVT prophylaxis Comment: Loveox and Coumadin as per ortho Status and Disposition: inpatient, medicine consult
--- NOTE | 2017-09-01 10:13 | RAD ---
Indication: Sepsis. Single frontal view of the chest performed at 0440 hours was reviewed. Comparison is made with previous exam dated August 22, 2017. No mediastinal shift is noted. Discoid atelectasis noted in the left base. The heart is probably magnified by the AP nature of the film. Previously identified right upper lobe nodule is not identified on the current study. IMPRESSION: NO ACTIVE CARDIOPULMONARY DISEASE IS NOTED.
--- NOTE | 2017-09-01 10:22 | PN ---
Progress Note - Progress Note Date of Service: 09/01/17 SOAP: Subjective: [Pt reports L knee pain 05/29. Calls from nursing staff overnight with concerns of 101.8 , low BP, low O2. Hospitalist was consulted. Pt denies CP, dizziness, SOB] Objective: [A and O x3, NAD Appears uncomfortable seated in chair. L knee dressing changed - Incision benign, ecchymosis present but no erythema or drainage. Calf soft, NT. Distal gross motor, NV function intact Vital Signs: Temp Pulse Resp BP Pulse Ox 101.6 F 112 16 97/60 100 09/01/17 07:28 09/01/17 07:28 09/01/17 07:55 09/01/17 07:28 09/01/17 07:28 Laboratory Results - last 24 hr 08/31/17 08/31/17 08/31/17 11:48 16:46 20:40 WBC RBC Hgb Hct MCV MCH MCHC RDW Plt Count MPV Neut % (Auto) Lymph % (Auto) [place] % (Auto) Eos % (Auto) Baso % (Auto) Absolute Neuts (auto) Absolute Lymphs (auto) Absolute Monos (auto) Absolute Eos (auto) Absolute Basos (auto) Absolute Nucleated RBC Nucleated RBC % INR (Anticoag Therapy) POC Glucose (mg/dL) 167 H 107 H 140 H Lactic Acid Urine Color Urine Appearance Urine pH Ur Specific Clifford Urine Protein Urine Ketones Urine Blood Urine Nitrate Urine Bilirubin Urine Urobilinogen Ur Leukocyte Esterase Urine Glucose 09/01/17 09/01/17 09/01/17 04:50 04:50 04:50 WBC 14.2 H RBC 3.32 L Hgb 9.2 L Hct 28 L MCV 83 MCH 28 MCHC 33 RDW 16 H Plt Count 249 MPV 8 Neut % (Auto) 71.6 Lymph % (Auto) 19.2 L [place] % (Auto) 8.8 Eos % (Auto) 0.2 Baso % (Auto) 0.2 Absolute Neuts (auto) 10.2 H Absolute Lymphs (auto) 2.7 Absolute Monos (auto) 1.3 H Absolute Eos (auto) 0 Absolute Basos (auto) 0 Absolute Nucleated RBC 0 Nucleated RBC % 0 INR (Anticoag Therapy) 1.52 H POC Glucose (mg/dL) Lactic Acid 1.9 Urine Color Urine Appearance Urine pH Ur Specific Clifford Urine Protein Urine Ketones Urine Blood Urine Nitrate Urine Bilirubin Urine Urobilinogen Ur Leukocyte Esterase Urine Glucose 09/01/17 09/01/17 05:02 08:05 WBC RBC Hgb Hct MCV MCH MCHC RDW Plt Count MPV Neut % (Auto) Lymph % (Auto) [place] % (Auto) Eos % (Auto) Baso % (Auto) Absolute Neuts (auto) Absolute Lymphs (auto) Absolute Monos (auto) Absolute Eos (auto) Absolute Basos (auto) Absolute Nucleated RBC Nucleated RBC % INR (Anticoag Therapy) POC Glucose (mg/dL) 113 H Lactic Acid Urine Color Straw Urine Appearance Clear Urine pH 6.0 Ur Specific Clifford 1.005 L Urine Protein Negative Urine Ketones Negative Urine Blood Negative Urine Nitrate Negative Urine Bilirubin Negative Urine Urobilinogen Negative Ur Leukocyte Esterase Negative Urine Glucose Negative ] Assessment: [56 yo female s/p L TKA with possible atelectasis] Plan: [Pain management. Morphine ER 15 mg bid added Con't PT Encourage IS Coumadin 8 mg today Medicine following Awaiting official read of CXR]
[2017-09-01] MEDS: Morphine TAB Extended Release (*) 15 MG TAB.ER PO SCH ×2 (11:59→22:57)
[2017-09-01] MEDS: Enoxaparin(*) 30 MG/0.3 ML SYR SUBCUT SCH (11:59)
[2017-09-01 12:09] LABS: EGFR Non-African American 60.3 (>60)
[2017-09-01] MEDS ORDERED: Warfarin TAB(*) 4 MG PO ONE (17:00)
[2017-09-01] MEDS: CMCS: Brexpiprazole (NF) 0.5 MG TAB PO SCH (17:54)
[2017-09-01] MEDS: Ketorolac INJ* 30 MG/ML 1 ML VIAL IV PRN (18:32)
[2017-09-01] MEDS: Atorvastatin* 20 MG TAB PO SCH (21:38)
[2017-09-01] MEDS: traZODone TAB* 50 MG TAB PO SCH (21:38)
[2017-09-01] MEDS: Gabapentin CAP(*) 300 MG PO SCH (21:39)
[2017-09-01] MEDS: Temazepam CAP* 15 MG PO SCH (21:40)
[2017-09-02] MEDS: Ketorolac INJ* 30 MG/ML 1 ML VIAL IV PRN ×3 (03:40→16:31)
[2017-09-02] MEDS: oxyCODONE/Acetamin 5/325 MG* TAB PO PRN (05:34)
[2017-09-02] MEDS: Omeprazole CAP* 20 MG PO SCH (05:34)
[2017-09-02 05:43] LABS: ABS Basophils 0 10^3/ul (0-0.2); ABS Eosinophils 0.1 10^3/ul (0-0.6); ABS Lymphocytes 1.3 10^3/ul (1.0-4.8); ABS Neutrophils 7.6 10^3/ul (1.5-7.7); ABS Nucleated RBC 0 10^3/ul; Eosinophil % 1.3 % (0-6); Hematocrit 22 % (35-47); Hemoglobin 7.5 g/dl (12.0-16.0); Lymphocyte % 12.7 % (25-47); Mean Corpuscular HGB Conc 35 g/dl (31-36); Mean Corpuscular Hemoglobin 29 pg (27-31); Mean Corpuscular Volume 82 fL (80-97); Mean Platelet Volume 8 um3 (7.4-10.4); Nucleated Red Blood Cells % 0; Platelet Count 181 10^3/ul (150-450); Red Blood Count 2.63 10^6/ul (4.0-5.4); Red Cell Distribution Width 16 % (10.5-15); White Blood Count 10.1 10^3/ul (3.5-10.8)
[2017-09-02 05:50] LABS: INR 2.65 (0.77-1.02)
[2017-09-02 05:59] LABS: EGFR Non-African American 84.1 (>60)
[2017-09-02] MEDS: Mometasone/Formoter 200/5 MDI INH SCH ×2 (08:15→19:23)
[2017-09-02] MEDS: oxyCODONE TAB* 5 MG TAB PO PRN (08:50)
--- NOTE | 2017-09-02 09:06 | PN ---
Progress Note - Progress Note Date of Service: 09/02/17 SOAP: Subjective: [Pt reports pain under better control today. 01/27. Feeling exhausted. Denies CP, SOB, dizziness. Has headache ] Objective: [A and O x3, NAD, afebrile Resting comfortably in bed L knee dressing C/D/I. Calf soft/NT. Distal gross motor, NV function intact. Vital Signs: Temp Pulse Resp BP Pulse Ox 98.4 F 73 16 86/49 98 09/02/17 07:26 09/02/17 07:26 09/02/17 08:50 09/02/17 07:26 09/02/17 07:26 Laboratory Results - last 24 hr 09/01/17 09/01/17 09/01/17 04:50 11:49 12:03 WBC 14.2 H RBC 3.32 L Hgb Hct MCV 83 MCH 28 MCHC 33 RDW 16 H Plt Count MPV Neut % (Auto) 71.6 Lymph % (Auto) 19.2 L Hayes % (Auto) 8.8 Eos % (Auto) 0.2 Baso % (Auto) 0.2 Absolute Neuts (auto) 10.2 H Absolute Lymphs (auto) 2.7 Absolute Monos (auto) 1.3 H Absolute Eos (auto) 0 Absolute Basos (auto) 0 Absolute Nucleated RBC 0 Nucleated RBC % 0 INR (Anticoag Therapy) Sodium 138 Potassium 4.0 Chloride 107 Carbon Dioxide 26 Anion Gap 5 BUN 10 Creatinine 0.96 H Est GFR ( Amer) 77.6 Est GFR (Non-Af Amer) 60.3 BUN/Creatinine Ratio 10.4 Glucose 136 H POC Glucose (mg/dL) 150 H Lactic Acid Calcium 8.0 L Blood Type Crossmatch 09/01/17 09/01/17 09/01/17 12:41 16:45 21:23 WBC RBC Hgb Hct MCV MCH MCHC RDW Plt Count MPV Neut % (Auto) Lymph % (Auto) Hayes % (Auto) Eos % (Auto) Baso % (Auto) Absolute Neuts (auto) Absolute Lymphs (auto) Absolute Monos (auto) Absolute Eos (auto) Absolute Basos (auto) Absolute Nucleated RBC Nucleated RBC % INR (Anticoag Therapy) Sodium Potassium Chloride Carbon Dioxide Anion Gap BUN Creatinine Est GFR ( Amer) Est GFR (Non-Af Amer) BUN/Creatinine Ratio Glucose POC Glucose (mg/dL) 101 H 151 H Lactic Acid 0.7 Calcium Blood Type Crossmatch 09/02/17 09/02/17 09/02/17 05:18 05:18 05:18 WBC 10.1 RBC 2.63 L Hgb 7.5 L Hct 22 L MCV 82 MCH 29 MCHC 35 RDW 16 H Plt Count 181 MPV 8 Neut % (Auto) 75.4 Lymph % (Auto) 12.7 L Hayes % (Auto) 10.4 H Eos % (Auto) 1.3 Baso % (Auto) 0.2 Absolute Neuts (auto) 7.6 Absolute Lymphs (auto) 1.3 Absolute Monos (auto) 1.0 H Absolute Eos (auto) 0.1 Absolute Basos (auto) 0 Absolute Nucleated RBC 0 Nucleated RBC % 0 INR (Anticoag Therapy) 2.65 H Sodium 137 Potassium 4.0 Chloride 105 Carbon Dioxide 30 Anion Gap 2 BUN 9 Creatinine 0.72 Est GFR ( Amer) 108.2 Est GFR (Non-Af Amer) 84.1 BUN/Creatinine Ratio 12.5 Glucose 104 H POC Glucose (mg/dL) Lactic Acid Calcium 8.0 L Blood Type Crossmatch 09/02/17 09/02/17 05:18 07:44 WBC RBC Hgb Hct MCV MCH MCHC RDW Plt Count MPV Neut % (Auto) Lymph % (Auto) Hayes % (Auto) Eos % (Auto) Baso % (Auto) Absolute Neuts (auto) Absolute Lymphs (auto) Absolute Monos (auto) Absolute Eos (auto) Absolute Basos (auto) Absolute Nucleated RBC Nucleated RBC % INR (Anticoag Therapy) Sodium Potassium Chloride Carbon Dioxide Anion Gap BUN Creatinine Est GFR ( Amer) Est GFR (Non-Af Amer) BUN/Creatinine Ratio Glucose POC Glucose (mg/dL) 139 H Lactic Acid Calcium Blood Type A Positive Crossmatch See Detail ] Assessment: [56 yo female s/p L TKA POD #3] Plan: [PRBC 1 unit due to low h/h D/C Lovenox Hold Coumadin today Pain management Con't to encourage IS Con't PT PLan D/C to snf]
[2017-09-02] MEDS: Magnesium Hydroxide LIQ* 30 ML UDC PO SCH ×2 (09:13→21:12)
[2017-09-02] MEDS: Docusate CAP* 100 MG PO SCH ×2 (09:13→21:11)
[2017-09-02] MEDS: AZELASTINE 0.1% BOTH NARES SCH ×2 (09:14→21:13)
[2017-09-02] MEDS: Artificial Tears* 15 ML BTL BOTH EYES SCH (09:14)
[2017-09-02] MEDS: CMCS: Escitalopram (NF) 10 MG TAB PO SCH (09:14)
[2017-09-02] MEDS: hydrOXYzine HCL TAB* 25 MG PO SCH ×3 (09:14→21:11)
[2017-09-02] MEDS: Insulin LISPRO* 1 UNITS UNIT SUBCUT SCH ×4 (09:14→21:44)
[2017-09-02] MEDS: Cetirizine* 10 MG TAB PO SCH (09:14)
--- NOTE | 2017-09-02 09:14 | PN ---
Subjective Date of Service: 09/02/17 Interval History: despite SBP 80 this AM, pt actually feels better.Pain in left knee at 5/10 , on 02 at 3L. Afebrile Objective Active Medications: Acetaminophen (Tylenol Tab*) 650 mg PO Q4H PRN PRN Reason: PAIN OR TEMPERATURE Albuterol (Ventolin Hfa Inhaler*) 2 puff INH Q4H PRN PRN Reason: SOB/WHEEZING Atorvastatin Calcium (Lipitor*) 20 mg PO BEDTIME [facility] Last Admin: 09/01/17 21:38 Dose: 20 mg Bisacodyl (Dulcolax Supp*) 10 mg [place] DAILY PRN PRN Reason: constipation Brexpiprazole (Rexulti 0.5 Mg Tab (Nf)) 1 mg PO QPM [facility] Last Admin: 09/01/17 17:54 Dose: 1 mg Cetirizine HCl (Zyrtec*) 10 mg PO QAM [facility] Last Admin: 09/01/17 07:52 Dose: 10 mg Cyclobenzaprine HCl (Flexeril Tab*) 10 mg PO TID PRN PRN Reason: SPASMS Last Admin: 09/01/17 05:00 Dose: 10 mg Dextrose (D50w Syringe 50 Ml*) 12.5 gm IV PUSH .FOR FS < 60 - SS PRN PRN Reason: FS < 60 Diphenhydramine HCl (Benadryl Iv*) 12.5 mg IV Q6H PRN PRN Reason: PRURITIS Last Admin: 08/31/17 15:09 Dose: 12.5 mg Docusate Sodium (Colace Cap*) 100 mg PO BID [facility] Last Admin: 09/01/17 21:38 Dose: 100 mg Escitalopram Oxalate (Lexapro (Nf)) 30 mg PO QAM [facility] Last Admin: 09/01/17 07:49 Dose: 30 mg Gabapentin (Neurontin Cap(*)) 300 mg PO BEDTIME [facility] Last Admin: 09/01/17 21:39 Dose: 300 mg Hydroxyzine HCl (Atarax Tab*) 25 mg PO TID [facility] Last Admin: 09/01/17 21:38 Dose: 25 mg Lactated Ringer's (Lactated Ringers 1000 Ml Bag*) 1,000 mls @ 100 mls/hr IV PER RATE [facility] Last Admin: 09/02/17 03:39 Dose: 100 mls/hr Insulin Human Lispro (Humalog*) 0 units SUBCUT ACHS [facility] PRN Reason: Protocol Last Admin: 09/01/17 21:42 Dose: 2 units Ketorolac Tromethamine (Toradol Inj*) 30 mg IV Q6H PRN PRN Reason: PAIN Last Admin: 09/02/17 03:40 Dose: 30 mg Magnesium Hydroxide (Milk Of Magnesia Liq*) 30 ml PO BID [facility] Last Admin: 09/01/17 21:39 Dose: 30 ml Magnesium Hydroxide (Milk Of Magnesia Liq*) 30 ml PO Q6H PRN PRN Reason: constipation Mometasone Furoate/Formoterol Fumar (Dulera 200/5 Mdi*) 2 puff INH BID [facility] PRN Reason: Protocol Last Admin: 09/02/17 08:15 Dose: 2 puff Morphine Sulfate (Morphine Inj (Syringe)*) 2 mg IV Q2H PRN PRN Reason: PAIN Last Admin: 09/01/17 07:55 Dose: 2 mg Morphine Sulfate (Ms Contin(*)) 15 mg PO Q12H [facility] Last Admin: 09/01/17 22:57 Dose: 15 mg Pto:Nf Med ( Azelastine Nasal Soln 0.1%) 1 dose BOTH NARES BID [facility] Last Admin: 09/01/17 22:56 Dose: 1 dose Omeprazole (Prilosec Cap*) 20 mg PO DAILY@0600 [facility] Last Admin: 09/02/17 05:34 Dose: 20 mg Ondansetron HCl (Zofran Inj*) 4 mg IV Q6H PRN PRN Reason: nausea Ondansetron HCl (Zofran Tab*) 4 mg PO Q6H PRN PRN Reason: NAUSEA Oxycodone HCl (Roxycodone Tab*) 10 mg PO Q4H PRN PRN Reason: SEVERE PAIN Last Admin: 09/02/17 08:50 Dose: 5 mg Oxycodone/Acetaminophen (Percocet 5/325 Tab*) 2 tab PO Q4H PRN PRN Reason: Moderate Pain Last Admin: 09/01/17 07:45 Dose: 2 tab Oxycodone/Acetaminophen (Percocet 5/325 Tab*) 2 tab PO Q4H PRN PRN Reason: PAIN Last Admin: 09/01/17 00:49 Dose: 2 tab Oxycodone/Acetaminophen (Percocet 5/325 Tab*) 1 tab PO Q4H PRN PRN Reason: PAIN Last Admin: 09/02/17 05:34 Dose: 1 tab Pharmacy Profile Note (Scopolamine Patch Remove*) 1 note PATCH OFF .AFTER 72 HOURS PRN PRN Reason: nausea Stop: 09/02/17 15:50 Pharmacy Profile Note (Coumadin Daily Reminder*) 1 note FOLLOW UP 1700 [facility] Last Admin: 09/01/17 17:54 Dose: 1 note Polyethylene Glycol/Electrolytes (Miralax*) 17 gm PO DAILY PRN PRN Reason: Constipation Polyvinyl Alcohol (Polyvinyl Alcohol 1.4% Opth*) 1 drop BOTH EYES QAM [facility] Last Admin: 09/01/17 07:58 Dose: 1 drop Temazepam (Restoril Cap*) 15 mg PO BEDTIME [facility] Last Admin: 09/01/17 21:40 Dose: Not Given Trazodone HCl (Desyrel Tab*) 50 mg PO BEDTIME [facility] Last Admin: 09/01/17 21:38 Dose: 50 mg Vital Signs - 8 hr 09/02/17 09/02/17 09/02/17 03:07 04:24 05:34 Temperature 99.6 F Pulse Rate 105 Respiratory 16 18 Rate Blood Pressure 154/86 (mmHg) O2 Sat by Pulse 97 97 Oximetry 09/02/17 09/02/17 09/02/17 05:39 07:26 08:50 Temperature 98.4 F Pulse Rate 73 Respiratory 16 16 Rate Blood Pressure 96/60 86/49 (mmHg) O2 Sat by Pulse 98 Oximetry Oxygen Devices in Use Now: Nasal Cannula - at 3L Appearance: 56 yo f in NAD, AAOx3 Eyes: No Scleral Icterus, PERRLA Ears/Nose/Mouth/Throat: NL Teeth, Lips, Gums, Mucous Membranes Moist Neck: NL Appearance and Movements; NL JVP, Trachea Midline Respiratory: Symmetrical Chest Expansion and Respiratory Effort, Clear to Auscultation Cardiovascular: NL Sounds; No Murmurs; No JVD, RRR Abdominal: NL Sounds; No Tenderness; No Distention Lymphatic: No Cervical Adenopathy Extremities: No Clubbing, Cyanosis, - - trace pedal edema b/l, left knee in surgical dressings-not uncovered Skin: No Nodules or Sclerosis Neurological: Alert and Oriented x 3, NL Muscle Strength and Tone Result Diagrams: 09/02/17 05:18 09/02/17 05:18 Microbiology and Other Data: Microbiology 09/01/17 04:50 Aerobic Blood Culture - Preliminary Blood Venous No Growth Day 1 Anaerobic Blood Culture - Preliminary No Growth Day 1 Assess/Plan/Problems-Billing Assessment: 56 yo F with h/o NADYA, DM diet controlled, HTN, depression, s/p L knee replacement - Patient Problems (1) Status post left knee replacement Comment: as per Dr. Leblanc (2) Hypotension Comment: hold ACEI, tx with IVF , SBP in 90 in pt s/p significant opioid tx for pain. (3) DM2 (diabetes mellitus, type 2) Comment: diet controlled at home Cont ISS (4) NADYA (obstructive sleep apnea) Comment: cont CPAP from home (5) Postoperative anemia due to acute blood loss Comment: Hb down to <8 with hypotension. will transfuse 1 U PRBC (6) Postoperative fever Comment: suspect atelectasis. Educated about incentive spirometry. Afebrile at night UA, CXR unremarkable, blood cx NTD (7) DVT prophylaxis Comment: Loveox and Coumadin as per ortho (8) Hypoxemia Comment: due t opioids, atelectasis and IVF. cont incentive spirometry Status and Disposition: inpatient, medicine consult
[2017-09-02] MEDS: Morphine TAB Extended Release (*) 15 MG TAB.ER PO SCH ×2 (10:36→23:24)
[2017-09-02] MEDS: CMCS: Brexpiprazole (NF) 0.5 MG TAB PO SCH (16:32)
[2017-09-02] MEDS: traZODone TAB* 50 MG TAB PO SCH (21:11)
[2017-09-02] MEDS: Atorvastatin* 20 MG TAB PO SCH (21:11)
[2017-09-02] MEDS: Gabapentin CAP(*) 300 MG PO SCH (21:12)
[2017-09-02] MEDS: Temazepam CAP* 15 MG PO SCH (21:13)
[2017-09-02 23:43] LABS: Hematocrit 28 % (35-47); Hemoglobin 9.1 g/dl (12.0-16.0); Mean Corpuscular HGB Conc 33 g/dl (31-36); Mean Corpuscular Hemoglobin 28 pg (27-31); Mean Corpuscular Volume 83 fL (80-97); Mean Platelet Volume 8 um3 (7.4-10.4); Platelet Count 185 10^3/ul (150-450); Red Blood Count 3.33 10^6/ul (4.0-5.4); Red Cell Distribution Width 16 % (10.5-15); White Blood Count 10.3 10^3/ul (3.5-10.8)
[2017-09-03] MEDS: Ketorolac INJ* 30 MG/ML 1 ML VIAL IV PRN (03:21)
[2017-09-03] MEDS: oxyCODONE/Acetamin 5/325 MG* TAB PO PRN ×2 (03:21→08:00)
[2017-09-03] MEDS: Omeprazole CAP* 20 MG PO SCH (05:17)
[2017-09-03 05:29] LABS: Hematocrit 26 % (35-47); Hemoglobin 8.8 g/dl (12.0-16.0); Mean Corpuscular HGB Conc 34 g/dl (31-36); Mean Corpuscular Hemoglobin 28 pg (27-31); Mean Corpuscular Volume 83 fL (80-97); Mean Platelet Volume 8 um3 (7.4-10.4); Platelet Count 201 10^3/ul (150-450); Red Blood Count 3.13 10^6/ul (4.0-5.4); Red Cell Distribution Width 16 % (10.5-15); White Blood Count 9.2 10^3/ul (3.5-10.8)
[2017-09-03 05:35] LABS: INR 3.22 (0.77-1.02)
[2017-09-03 05:38] LABS: EGFR Non-African American 68.5 (>60)
[2017-09-03] MEDS: hydrOXYzine HCL TAB* 25 MG PO SCH (08:00)
[2017-09-03] MEDS: Docusate CAP* 100 MG PO SCH (08:00)
[2017-09-03] MEDS: Cetirizine* 10 MG TAB PO SCH (08:00)
[2017-09-03] MEDS: Artificial Tears* 15 ML BTL BOTH EYES SCH (08:17)
[2017-09-03] MEDS: Insulin LISPRO* 1 UNITS UNIT SUBCUT SCH (08:18)
[2017-09-03] MEDS: CMCS: Escitalopram (NF) 10 MG TAB PO SCH (08:20)
[2017-09-03] MEDS: Magnesium Hydroxide LIQ* 30 ML UDC PO SCH (08:21)
[2017-09-03] MEDS: Mometasone/Formoter 200/5 MDI INH SCH (08:21)
[2017-09-03] MEDS: AZELASTINE 0.1% BOTH NARES SCH (08:22)
[2017-09-03] MEDS: Morphine TAB Extended Release (*) 15 MG TAB.ER PO SCH (10:09)
--- NOTE | 2017-09-03 10:44 | PN ---
Progress Note - Progress Note Date of Service: 09/03/17 SOAP: Subjective: 56 y/o female s/p L TKA by Dr. Leblanc 08/30. Patient pain well controlled, concerned about transfer to [facility], questions answered. Working well with PT. VSS afebrile overnight Objective: General- Well appearing, NAD AO sitting in chair comfortably MSK- L LE Dressing removed, incision c/d/i, no drainage noted, mild edema, redressed, + DF/PF +2 DP pulses neg homans. Vital Signs Temp 98.3 F 09/03/17 07:49 Pulse 89 09/03/17 07:49 Resp 16 09/03/17 10:09 BP 112/66 09/03/17 07:49 Pulse Ox 99 09/03/17 08:19 Intake & Output 09/02/17 09/03/17 09/03/17 18:59 06:59 18:59 Intake Total 530 5598 450 Output Total 1800 1725 800 Balance -1270 3873 -350 Intake: IV Fluids 2588 LR 2588 Oral 530 2710 450 Packed Cells 300 Output: Urine 1800 1725 800 Other: Date of Last Bowel 09/03/17 Movement # Bowel Movements 1 Estimated Stool Amount Large Small Assessment: STable 56 y/o female s/p L TKA by Dr. Leblanc 08/30. Plan: - Continue coumadin for DVT prophyl. - Transfer to [facility] today for continued PT - Continue PT/ OT as shown - Pain medication as current - Follow up with Dr. Leblanc within 10 days Active Medications Generic Name Dose Route Start Last Admin Trade Name Freq PRN Reason Stop Dose Admin Acetaminophen 650 mg 08/30/17 17:36 Tylenol Tab* PO Q4H PRN PAIN OR TEMPERATURE Albuterol 2 puff 08/31/17 14:00 Ventolin Hfa Inhaler* INH Q4H PRN SOB/WHEEZING Atorvastatin Calcium 20 mg 08/30/17 22:00 09/02/17 21:11 Lipitor* PO 20 mg BEDTIME ANA Administration Bisacodyl 10 mg 08/30/17 17:36 Dulcolax Supp* [place] DAILY PRN constipation Brexpiprazole 1 mg 08/30/17 18:00 09/02/17 16:32 Rexulti 0.5 Mg Tab (Nf) PO 1 mg QPM ANA Administration Cetirizine HCl 10 mg 08/31/17 09:00 09/03/17 08:00 Zyrtec* PO 10 mg QAM ANA Administration Cyclobenzaprine HCl 10 mg 08/31/17 07:10 09/01/17 05:00 Flexeril Tab* PO 10 mg TID PRN Administration SPASMS Dextrose 12.5 gm 08/30/17 20:03 D50w Syringe 50 Ml* IV PUSH .FOR FS < 60 - SS PRN FS < 60 Diphenhydramine HCl 12.5 mg 08/31/17 07:10 08/31/17 15:09 Benadryl Iv* IV 12.5 mg Q6H PRN Administration PRURITIS Docusate Sodium 100 mg 08/30/17 21:00 09/03/17 08:00 Colace Cap* PO 100 mg BID ANA Administration Escitalopram Oxalate 30 mg 08/31/17 09:00 09/03/17 08:20 Lexapro (Nf) PO 30 mg QAM ANA Administration Gabapentin 300 mg 08/31/17 21:00 09/02/17 21:12 Neurontin Cap(*) PO Not Given BEDTIME ANA Hydroxyzine HCl 25 mg 08/31/17 09:00 09/03/17 08:00 Atarax Tab* PO 25 mg TID ANA Administration Lactated Ringer's 1,000 mls @ 100 mls/hr 08/30/17 18:00 09/02/17 23:22 Lactated Ringers 1000 Ml Bag* IV 100 mls/hr PER RATE ANA Administration Insulin Human Lispro 0 units 08/30/17 21:00 09/03/17 08:18 Humalog* SUBCUT 2 units ACHS ANA Administration Protocol Ketorolac Tromethamine 30 mg 08/30/17 15:48 09/03/17 03:21 Toradol Inj* IV 30 mg Q6H PRN Administration PAIN Magnesium Hydroxide 30 ml 08/30/17 21:00 09/03/17 08:21 Milk Of Magnesia Liq* PO Not Given BID ANA Magnesium Hydroxide 30 ml 08/30/17 17:36 Milk Of Magnesia Liq* PO Q6H PRN constipation Mometasone Furoate/Formoterol Fumar 2 puff 08/30/17 21:00 09/03/17 08:21 Dulera 200/5 Mdi* INH 2 puff BID ANA Administration Protocol Morphine Sulfate 2 mg 08/31/17 07:10 09/01/17 07:55 Morphine Inj (Syringe)* IV 2 mg Q2H PRN Administration PAIN Morphine Sulfate 15 mg 09/01/17 11:00 09/03/17 10:09 Ms Contin(*) PO 15 mg Q12H ANA Administration Pto:Nf Med ( 1 dose 08/30/17 23:00 09/03/17 08:22 Azelastine Nasal BOTH NARES 1 dose Soln 0.1%) BID ANA Administration Omeprazole 20 mg 08/31/17 06:00 09/03/17 05:17 Prilosec Cap* PO 20 mg DAILY@0600 ANA Administration Ondansetron HCl 4 mg 08/31/17 07:10 Zofran Inj* IV Q6H PRN nausea Ondansetron HCl 4 mg 08/31/17 07:10 Zofran Tab* PO Q6H PRN NAUSEA Oxycodone HCl 10 mg 08/31/17 07:10 09/02/17 08:50 Roxycodone Tab* PO 5 mg Q4H PRN Administration SEVERE PAIN Oxycodone/Acetaminophen 2 tab 08/31/17 07:10 09/03/17 08:00 Percocet 5/325 Tab* PO 2 tab Q4H PRN Administration PAIN Oxycodone/Acetaminophen 1 tab 08/31/17 07:10 09/03/17 03:21 Percocet 5/325 Tab* PO 1 tab Q4H PRN Administration PAIN Pharmacy Profile Note 1 note 08/31/17 17:00 09/02/17 16:29 Coumadin Daily Reminder* FOLLOW UP Not Given 1700 ANA Polyethylene Glycol/Electrolytes 17 gm 08/30/17 17:36 Miralax* PO DAILY PRN Constipation Polyvinyl Alcohol 1 drop 08/31/17 09:00 09/03/17 08:17 Polyvinyl Alcohol 1.4% Opth* BOTH EYES 1 drop QAM ANA Administration Temazepam 15 mg 08/31/17 21:00 09/02/17 21:13 Restoril Cap* PO Not Given BEDTIME ANA Trazodone HCl 50 mg 08/30/17 21:00 09/02/17 21:11 Desyrel Tab* PO 50 mg BEDTIME ANA Administration
[2017-09-03 11:31] VITALS: BP 98/52
--- NOTE | 2017-09-03 12:08 | DS ---
DISCHARGE SUMMARY: DATE OF ADMISSION: 08/30/17 DATE OF DISCHARGE: 09/03/17 ATTENDING PHYSICIAN: Dr. Lisha Leblanc* (dictated by HERBERT Tomas). CHIEF COMPLAINT: 1. Left knee pain. 2. Stage 3 kidney disease. 3. Exercise-induced asthma. 4. Diabetes. 5. Hypertension. 6. Sleep apnea. 7. Migraines. 8. Depression. 9. Hyperlipidemia. 10. Insomnia. 11. Gastroesophageal reflux disease. 12. Vitamin D deficiency. DISCHARGE DIAGNOSES: 1. Status post uncomplicated left total knee arthroplasty. 2. Stage 3 kidney disease. 3. Exercise-induced asthma. 4. Diabetes. 5. Hypertension. 6. Sleep apnea. 7. Migraines. 8. Depression. 9. Hyperlipidemia. 10. Insomnia. 11. Gastroesophageal reflux disease. 12. Vitamin D deficiency. PROCEDURE: Left total knee arthroplasty performed 08/31/17, uncomplicated, estimated blood loss 300 cc. CONSULTATIONS: 1. Physical Therapy. 2. Occupational Therapy. 3. Hospitalist Medicine. BRIEF HISTORY: The patient is a 56-year-old female with severe left knee pain secondary to end-stage osteoarthritis, who elected to undergo a left total knee arthroplasty by Dr. Leblanc on 08/30/17. HOSPITAL COURSE: The patient was admitted to [facility] on 08/30/17 , where she underwent an uncomplicated left total knee arthroplasty by Dr. Lisha Leblanc. Postoperatively, she recovered on the surgical short stay unit. Her Arguello was removed on postoperative day 2 when was voiding on her own without difficulty. Her vital signs remained stable throughout her stay. She worked well with physical and occupational therapy and it was recommended that she continue her rehabilitation at an acute rehabilitation center. Her H and H decreased on 07/03/17 from 9.2/28 to 7.5/22 and she was transfused with 1 unit with the H and H increasing to 9.1 and 28. This remained stable for the rest of her stay. Her anticoagulation was completed with Lovenox and Coumadin until she reached the therapeutic INR. Her creatinine and BUN remained stable throughout her visit. She was orthopedically and medically stable, so discharged to a subacute rehabilitation center ([facility]) on 09/03/17. PHYSICAL EXAMINATION: General: Well-appearing, in no acute distress, alert and oriented, sitting in chair comfortably, in no acute distress. Vital Signs: Temperature 98.3, pulse rate 89, respiratory rate 20, oxygen saturation 99% on room air, blood pressure 112/66. Examination of the left lower extremity showed positive dorsiflexion and plantar flexion with dorsalis pedis pulse which was 2+, negative Homans' sign, sensation intact to light touch. Dressing removed. The incision was clean, dry, and intact with no erythema or ecchymosis , associated mild edema throughout the knee joints, nontender to light palpation. The wound was redressed with gauze and Issac wrap. DIAGNOSTIC STUDIES/LAB DATA ON THE DATE OF DISCHARGE: H and H of 8.3 and 26 with an INR of 3.22. Radiographs: Postoperative films obtained of the left knee on 08/30/17, show a left total knee arthroplasty in good positioning. DISCHARGE MEDICATIONS: 1. Albuterol 2 puffs inhaled b.i.d. 2. Artificial tears in both eyes q.a.m. 3. Axelestine 0.1% spray, 1 spray to both nares b.i.d. 4. Rexulti 1 mg p.o. q.p.m. 5. Symbicort 160/4.5 two puffs inhaled b.i.d. 6. Flexeril 10 mg tablet p.o. t.i.d. p.r.n. 7. Colace 100 mg p.o. b.i.d. 8. Lexapro 30 mg p.o. q.a.m. 9. Gabapentin 300 mg p.o. q.h.s. 10. Atarax 25 mg p.o. t.i.d. 11. Levocetirizine 5 mg p.o. q.a.m. 12. Morphine extended-release tablets 15 mg p.o. q.12 hours. 13. Percocet 5/325 one to two tablets every 4 to 6 hours as needed for mild breakthrough pain. 14. Zocor 40 mg p.o. q.p.m. 15. Restoril 15 mg p.o. q.h.s. 16. Trazodone 50 mg p.o. q.h.s. p.r.n. 17. Coumadin 2 mg tablets, 1 to 3 tablets daily at 5 p.m. per physician's instructions. 18. Oxybutynin 5 mg p.o. q.a.m. 19. Protonix 40 mg p.o. q.a.m. 20. Imitrex 100 mg p.o. daily p.r.n. 21. Calcium 500 mg p.o. q.p.m. 22. Aspirin 81 mg p.o. q.a.m. CONDITION ON DISCHARGE: Stable. DISCHARGE INSTRUCTIONS: Ms. Hernandez is a very pleasant 56-year-old female, postoperative day 4, who is being discharged to [facility] for subacute rehabilitation after undergoing a left total knee arthroplasty. The patient's vital signs and labs remain stable. She will continue to take Coumadin. Her INR is supratherapeutic and she will hold her dose on the 09/03/17 and 09/04/17 , take 2 mg on 09/05/17, and have a repeat INR checked on 09/06/17. She will have INR check done by the nursing staff at [facility] every Sunday and . She will continue to take morphine extended release 15 mg p.o. q.12 hours for pain and Percocet 1 or 2 tablets as needed every 4 to 6 hours for breakthrough pain. She should have wound checks daily with dressing change daily. She will follow up with Dr. Leblanc in approximately 10 days for suture removal and wound check. She should go to the ER should she have any chest pain or shortness of breath. She should call the office if any redness, drainage, erythema, or increased pain. HERBERT TOMAS [id number]/[facility] #: [id number] [place]LLIE
== END 2017-09-03 12:40 | DRG 470 ==
LOC: AA 10:42 → SSU 20:24
PROVIDERS: ADMIT Orthopaedic Surgery Adult Reconstructive Orthopaedic Surgery; ATTEND Orthopaedic Surgery Adult Reconstructive Orthopaedic Surgery
PROC: 0SRD0J9 Replacement of Left Knee Joint with Synthetic Substitute, Cemented, Open Approach (ICD-10-PCS; principal; 2017-08-30 13:45)
PROC: 30233N1 Transfusion of Nonautologous Red Blood Cells into Peripheral Vein, Percutaneous Approach (ICD-10-PCS; 2017-09-02)
DX: M17.12 Unilateral primary osteoarthritis, left knee (principal); E11.22 Type 2 diabetes mellitus with diabetic chronic kidney disease; N18.3 Chronic kidney disease, stage 3 (moderate); D62 Acute posthemorrhagic anemia; J98.11 Atelectasis; I12.9 Hypertensive chronic kidney disease with stage 1 through stage 4 chronic kidney disease, or unspecified chronic kidney disease; J45.990 Exercise induced bronchospasm; G47.33 Obstructive sleep apnea (adult) (pediatric); G43.909 Migraine, unspecified, not intractable, without status migrainosus; F32.9 Major depressive disorder, single episode, unspecified; E78.5 Hyperlipidemia, unspecified; G47.00 Insomnia, unspecified; K21.9 Gastro-esophageal reflux disease without esophagitis; E55.9 Vitamin D deficiency, unspecified; I95.2 Hypotension due to drugs; T40.2X5A Adverse effect of other opioids, initial encounter; Y92.230 Patient room in hospital as the place of occurrence of the external cause; X58.XXXA Exposure to other specified factors, initial encounter; R50.82 Postprocedural fever; R09.02 Hypoxemia; M85.862 Other specified disorders of bone density and structure, left lower leg; M25.762 Osteophyte, left knee; Z82.49 Family history of ischemic heart disease and other diseases of the circulatory system; Z79.1 Long term (current) use of non-steroidal anti-inflammatories (NSAID); Z79.82 Long term (current) use of aspirin; Z79.899 Other long term (current) drug therapy; Z91.011 Allergy to milk products; Z91.048 Other nonmedicinal substance allergy status; Z84.1 Family history of disorders of kidney and ureter; Z81.8 Family history of other mental and behavioral disorders
CPT/HCPCS: 36415; 71045; 80048; 81003; 83605; 85014; 85018; 85025; 85027; 85049; 85610; 86850; 86900; 86901; 86922; 87040; 94640; 94760; A9270-GY; C1776; J0690; J1100; J1200; J1650; J1885; J2250; J2270; J2300; J2405; J2704; J3010; P9040

== ENCOUNTER 2018-02-22 08:53 | Emergency (ER) | payer MEDICARE, MEDICAID ==
[2018-02-22] MEDS ORDERED: Ibuprofen TAB* 800 MG PO ONE (09:21)
--- NOTE | 2018-02-22 09:32 | ED ---
Complex/Multi-Sys Presentation - HPI Summary HPI Summary: Patient presents with right hand pain and left knee pain status post mechanical fall prior to arrival. She reports she was at a support group for mental health issues when she accidentally tripped on a rug and fell forward. (Denies dizziness, headache, CP, SOB, weakness or fatigue prior to fall). She landed on her right hand and left knee. She reports 9 out of 10 pain in her left knee. She was not able to stand after injury. Denies numbness tingling or weakness in the lower extremity and no other areas of pain or immobility in this extremity including the toes, foot, ankle, montanez, thigh, hip and back areas. Additionally she denies hitting her abdomen, chest, head and no injury to the neck. She is concerned about her left knee she had total knee replacement in August [address] Leblanc. She denies complications from the surgery and is still in physical therapy. She had this surgery secondary to severe OA and reports her pain and functionality are much better since surgery. In regards to her right hand, she reports pain is worse over the thenar eminence. She has full range of motion and denies numbness, tingling, weakness. Simply has soreness to touch over the thenar eminence. Denies phalange, wrist, forearm, elbow, humerus, shoulder pain. She has not tried anything for pain prior to arrival. She is open to taking ibuprofen and using ice packs at this time. - History Of Current Complaint Chief Complaint: EDExtremityLower Time Seen by Provider: 02/22/18 09:00 Hx Obtained From: Patient - Allergies/Home Medications Allergies/Adverse Reactions: Allergies Allergy/AdvReac Type Severity Reaction Status Date / Time lactose Allergy Severe Diarrhea Verified 02/22/18 09:06 mepenzolate Allergy Severe Swelling Verified 02/22/18 09:06 Of Face,Lips,& Throat PMH/Surg Hx/FS Hx/Imm Hx Previously Healthy: Yes Endocrine/Hematology History: Reports: Hx Diabetes - controlled w/ diet Denies: Hx Anticoagulant Therapy, Hx Blood Disorders, Hx Thyroid Disease Cardiovascular History: Reports: Hx Hypercholesterolemia, Hx Hypertension Denies: Hx Pacemaker/ICD Respiratory History: Reports: Hx Asthma, Hx Seasonal Allergies, Hx Sleep Apnea Denies: Hx Chronic Obstructive Pulmonary Disease (COPD) GI History: Reports: Hx Gastroesophageal Reflux Disease, Hx Hiatal Hernia, Hx Irritable Bowel - ON DAILY MEDS Denies: Hx Ulcer History: Reports: Hx Chronic Renal Failure, Hx Renal Disease Musculoskeletal History: Reports: Hx Arthritis - BOTH KNEES/ELBOWS, Hx Orthopedic Injury - left knee-meniscus tear,acl tear, Hx Tendonitis - LEFT ANKLE , Hx Joint Replacement - Lt TKR in Aug 2017 w/ Benji Sensory History: Reports: Hx Cataracts, Hx Contacts or Glasses Denies: Hx Hearing Aid Opthamlomology History: Reports: Hx Cataracts, Hx Contacts or Glasses Neurological History: Reports: Hx Migraine Denies: Hx Dementia, Hx Seizures Psychiatric History: Reports: Hx Anxiety - ON DAILY MEDS, Hx Depression, Other Psychiatric Issues/Disorders - borderline personality disorder Denies: Hx Panic Disorder, Hx Substance Abuse - Cancer History Hx Chemotherapy: No Hx Radiation Therapy: No - Surgical History Surgery Procedure, Year, and Place: YOUNG CHILD T&A [facility]. TEENAGER WISDOM TEETH EXTRACTED ALPINE. left knee meniscus Jun 2013 @[facility] [place]. CATARACTS 2013-. TONSILLECTOMY Hx Anesthesia Reactions: No Infectious Disease History: No Infectious Disease History: Denies: Hx Clostridium Difficile, Hx Hepatitis, Hx Human Immunodeficiency Virus (HIV), Hx of Known/Suspected MRSA, Hx Shingles, Hx Tuberculosis, Hx Known/ Suspected VRE, Hx Known/Suspected VRSA, History Other Infectious Disease, Traveled Outside the [place] in Last 30 Days - Family History Known Family History: Positive: Cardiac Disease - mother - Social History Occupation: Disabled Lives: Alone Alcohol Use: None Alcohol Amount: none in 11 yrs Hx Substance Use: No Substance Use Type: Reports: None Hx Tobacco Use: No Smoking Status (MU): Never Smoked Tobacco Review of Systems Constitutional: Negative Negative: Fatigue Eyes: Negative Negative: Epistaxis, Dental Pain Negative: Chest Pain Negative: Shortness Of Breath Gastrointestinal: Negative Negative: Abdominal Pain, Vomiting, Nausea Positive: no symptoms reported Positive: Arthralgia, Myalgia. Negative: Decreased ROM, Edema Neurological: Negative Psychological: Normal All Other Systems Reviewed And Are Negative: Yes Physical Exam Triage Information Reviewed: Yes Vital Signs On Initial Exam: Initial Vitals Temp Pulse Resp BP Pulse Ox 97.5 F 74 18 122/76 94 02/22/18 08:57 02/22/18 08:57 02/22/18 08:57 02/22/18 08:57 02/22/18 08:57 Vital Signs Reviewed: Yes Appearance: Positive: Well-Appearing, Pain Distress - pt appears comfortable seated in bed but report 9/10 pain in Lt knee, Obese Skin: Positive: Warm, Skin Color Reflects Adequate Perfusion, Dry - healed surigical scar over Lt anterior knee; early signs of bruising - no erythema, no skin breakdown Head/Face: Positive: Normal Head/Face Inspection Eyes: Positive: EOMI ENT: Positive: Hearing grossly normal Respiratory/Lung Sounds: Positive: Breath Sounds Present Cardiovascular: Positive: Pulses are Symmetrical in both Upper and Lower Extremities Abdomen Description: Positive: Nontender, Soft Musculoskeletal: Positive: Strength/ROM Intact - toes, ankle, hip on Lt w/o pain /difficulty; phalanges, wrist, elbow shoulder w/o pain or difficulty, Limited @ - Lt knee pain w/ flexion past 45 degrees - no gross deformity - anterior knee TTP - popliteal space and B/L knee NTTP, Pain @ - Rt thenar eminance TTP; carpals including anatomical snuff box is NTTP and no pain w/ ROM Neurological: Positive: Normal, Sensory/Motor Intact, Alert, Oriented to Person Place, Time, CN Intact II-III Psychiatric: Negative: Affect/Mood Appropriate - blunted affect Diagnostics - Vital Signs Vital Signs Temp Pulse Resp BP Pulse Ox 02/22/18 08:57 97.5 F 74 18 122/76 94 - Laboratory Lab Statement: Any lab studies that have been ordered have been reviewed, and results considered in the medical decision making process. Re-Evaluation - Re-Evaluation First Eval Change: Improved - Lt knee feels better w/ ice Complex Multi-Symp Course/Dx Course Of Treatment: Lt knee XR reveals suprapatellar effusion - most likely 2ndry to direct trauma here from fall. Hardware intact w/o fx/displacement. Pt tried weight bearing w/ success re: stability and minimal discomfort. Will f/u w / Dr. Leblanc this coming week. Rt hand XR w/o fx, dislocation. Again, her Rt hand/wrist were evaluated and neg for concerns of wrist injury. Advised f/u w/ PCP in 1 week if sx persist or if she develops wrist pain to better evaluate scaphoid - no concern for injury here today. Pt agrees w/ plan. - Diagnoses Provider Diagnoses: Fall from standing, Contusion of right hand, Effusion, left knee Discharge - Sign-Out/Discharge Documenting (check all that apply): Discharge/Admit/Transfer - Discharge Plan Condition: Stable Disposition: HOME Patient Education Materials: Contusion in Adults (ED) Forms: *Physical Education Release Referrals: Dimitry Ortega MD [Primary Care Provider] - Lisha Leblanc MD [Medical Doctor] - Additional Instructions: For your knee: Rest, ice, elevate and wear ADRIA wrap for comfort and swelling. You may take ibuprofen alternating with acetaminophen as needed for pain Follow-up with Dr. Leblanc next week. Call today to schedule an appointment. *If in the meantime you develop acute swelling, intractable pain, instability, numbness, tingling, weakness, return to the emergency department For your hand: Rest, ice, elevate and wear ADRIA wrap for comfort and swelling. You may take ibuprofen alternating with acetaminophen as needed for pain Follow-up with PCP in 1 week if symptoms persist as you may benefit from a wrist XR. There was no concern today for wrist injury but close follow-up to assess for a hidden fracture is a good plan. *If in the meantime you develop wrist pain, swelling, numbness, tingling, weakness, follow-up with PCP [facility] or return to ED - Billing Disposition and Condition Condition: STABLE Disposition: Home
--- NOTE | 2018-02-22 10:10 | RAD ---
INDICATION: RIGHT thenar eminence pain post fall on outstretched hand. COMPARISON: No relevant prior exams available on the [facility] [place] PACS for comparison. TECHNIQUE: AP, lateral, and oblique views RIGHT hand. REPORT: Negative for fracture. Mild ulnar subluxation of the base of the third distal phalanx relative to the head of the middle phalanx which appears degenerative. Articular alignment is otherwise normal. 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 Mild nonfocal soft tissue swelling. IMPRESSION: #. Negative for fracture. #. If there is high index of suspicion for an occult scaphoid fracture dedicated wrist radiographs including scaphoid view would be suggested.
--- NOTE | 2018-02-22 10:13 | RAD ---
Indication: LEFT knee pain post fall. 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 Comparison: November 09, 2017 Technique: LEFT knee: AP, lateral, sunrise views. REPORT AND IMPRESSION: #. Moderate suprapatellar joint effusion without significant change. Normal alignment of the prosthetic joint. Negative for periprosthetic fracture or stigmata of prosthesis component loosening. Mild anterior soft tissue swelling.
[2018-02-22 11:16] VITALS: BP 127/86
== END 2018-02-22 11:15 | disposition home or self-care (01) ==
LOC: ED 08:53
DX: M25.462 Effusion, left knee (principal); S60.221A Contusion of right hand, initial encounter; W01.0XXA Fall on same level from slipping, tripping and stumbling without subsequent striking against object, initial encounter; Z88.8 Allergy status to other drugs, medicaments and biological substances; E11.9 Type 2 diabetes mellitus without complications; I10 Essential (primary) hypertension; E78.00 Pure hypercholesterolemia, unspecified; J45.909 Unspecified asthma, uncomplicated; F41.9 Anxiety disorder, unspecified; F32.9 Major depressive disorder, single episode, unspecified; Z79.899 Other long term (current) drug therapy
CPT/HCPCS: 99282; A9270-GY